=== PATIENT | male | born 2000 | race African-American/Black ===

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

== ENCOUNTER → 2020-09-29 | Outpatient (CLI) | payer SELFPAY | LOC: M LABSMTC 14:07 | PROVIDERS: ATTEND Pediatrics | DX: Z20.828 Contact with and (suspected) exposure to other viral communicable diseases (principal) ==

== ENCOUNTER 2023-09-16 12:42 | Emergency (ER) | payer SELFPAY ==
[~2023-09-16] VITALS: Ht 188 cm; Wt 73.9 kg
[2023-09-16 14:08] LABS: RSV AMPLIFICATION NEGATIVE (NEGATIVE)
[2023-09-16 14:36] VITALS: BP 125/68; TEMP 98.4; O2SAT 97
== END 2023-09-16 14:39 | disposition home or self-care (01) ==
LOC: M ED 12:42
DX: U07.1 COVID-19 (principal)